=== PATIENT | female | born 1955 | race Caucasian/White ===

== ENCOUNTER 2016-09-02 16:10 | Emergency (ER) | payer MEDICAID ==
[~2016-09-02] VITALS: Ht 162.6 cm; Wt 85.7 kg
[~2016-09-02 16:10] MED LIST: ALPR2TAB2 PO; ENAL20TA70 PO; IBUP-1174 PO; METO-159 PO
[2016-09-02 17:42] LABS: Basophils # (auto) 0 uL; Basophils % (auto) 0.4 % (0.0-2.0); Eosinophils # (auto) 0.1 uL; Eosinophils % (auto) 2.1 % (0.0-7.0); Hematocrit 43.8 % (36.0-46.0); Hemoglobin 14.9 g/dL (12.2-16.2); Lymphocytes # (auto) 1.9 uL; Lymphocytes % (auto) 29.9 % (10.0-50.0); Mean Corpuscular Hemoglobin 31.4 pg (28.0-32.0); Mean Corpuscular Volume 92.4 fL (80.0-100.0); Mean Platelet Volume 9.1 fL (7.4-10.4); Monocytes # (auto) 0.5 uL; Neutrophils # (auto) 3.9 uL; Neutrophils % (auto) 60.6 % (37.0-80.0); Platelet Count (auto) 208 10^3/uL (140-450); Red Cell Distribution Width 13.8 % (11.6-16.0); White Blood Cell 6.5 10^3/uL (4.4-10.8)
[2016-09-02 18:00] LABS: Albumin 3.7 g/dL (3.4-5.0); Alkaline Phosphatase 74 U/L (45-117); Anion Gap 11 (5-15); Aspartate Aminotransferase 20 U/L (15-37); BUN/Creatinine Ratio 16.5; Bilirubin, Total 0.8 mg/dL (0.2-1.0); Blood Urea Nitrogen 13 mg/dL (7-18); Carbon Dioxide 27 mmol/L (21-32); Chloride 107 mmol/L (98-107); GFR African American 95 mL/min; GFR Non-African American 79 mL/min; Glucose 81 mg/dL (74-106); Magnesium 2.7 mg/dL (1.6-2.6); Potassium 3.9 mmol/L (3.5-5.1); Sodium 145 mmol/L (136-145); Total Protein 7.3 g/dL (6.4-8.2)
[2016-09-02] MEDS ORDERED: SODIUM CHLORIDE 0.9% 1,000 ML IV ONE (22:13)
[2016-09-02] MEDS ORDERED: ONDANSETRON HCL 4 MG/2 ML VIAL IV ONE (22:15)
[2016-09-02] MEDS ORDERED: NALBUPHINE HCL 10 MG/1ml INJECTION IV ONE (22:15)
[2016-09-03 00:27] VITALS: BP 126/82
== END 2016-09-03 01:50 | disposition home or self-care (01) ==
LOC: ER 16:20
DX: K59.00 Constipation, unspecified (principal); E78.5 Hyperlipidemia, unspecified; I10 Essential (primary) hypertension; I20.9 Angina pectoris, unspecified; Z88.6 Allergy status to analgesic agent; Z88.1 Allergy status to other antibiotic agents; Z88.8 Allergy status to other drugs, medicaments and biological substances
CPT/HCPCS: 36415; 74000; 74176; 80053; 83735; 84484; 85025; 93005; 96361; 96374; 96375; 99285; J2300; J2405; J7030

== ENCOUNTER 2022-11-17 16:20 | Inpatient (IN) | payer MEDICARE, MEDICAID ==
[~2022-11-17] VITALS: Ht 160 cm; Wt 91.7 kg
[~2022-11-17 16:20] MED LIST changes: +ENAL1TAB48 PO; -ENAL20TA70 PO
[2022-11-17 17:08] LABS: Basophils # (auto) 0 10 ^3/uL (0-0.2); Basophils % (auto) 0.5 % (0.0-2.0); Eosinophils # (auto) 0.1 10 ^3/uL (0-0.8); Eosinophils % (auto) 0.9 % (0.0-7.0); Hematocrit 40.3 % (36.0-46.0); Hemoglobin 13.8 g/dL (12.2-16.2); Lymphocytes # (auto) 0.9 10 ^3/uL (0.4-5.4); Lymphocytes % (auto) 14.7 % (10.0-50.0); Mean Corpuscular Hemoglobin 32.3 pg (28.0-32.0); Mean Corpuscular Hgb Conc. 34.1 g/dL (32.0-36.0); Mean Corpuscular Volume 94.8 fL (80.0-100.0); Monocytes # (auto) 0.4 10 ^3/uL (0-1.3); Monocytes % (auto) 5.6 % (0.0-12.0); Neutrophils % (auto) 78.3 % (37.0-80.0); Red Blood Cells 4.26 10^6/uL (4.0-5.20); White Blood Cell 6.4 10^3/uL (4.4-10.8)
[2022-11-17 17:14] LABS: Urine Bacteria FEW /hpf (None Seen); Urine Blood Negative /uL (Negative); Urine Mucus FEW (None Seen); Urine Specific Gravity 1.022 (1.001-1.035); Urine WBC 1 /hpf (0 - 5)
[2022-11-17 17:24] LABS: Albumin 3.4 g/dL (3.4-5.0); Calcium 9.8 mg/dL (8.5-10.1); Potassium 3.9 mmol/L (3.5-5.1)
[2022-11-17 17:28] LABS: BUN/Creatinine Ratio 15.7 (10.0-20.0); Total Protein 6.7 g/dL (6.4-8.2)
[2022-11-17] MEDS ORDERED: ONDANSETRON HCL 4 MG/2 ML VIAL IV ONE (17:45)
[2022-11-17] MEDS ORDERED: MORPHINE SULFATE 4 MG/ML SYR/VIAL IM ONE (17:45)
[2022-11-17] MEDS ORDERED: SODIUM CHLORIDE 0.9% 1,000 ML IV ONE (17:45)
[2022-11-17] MEDS ORDERED: cefTRIAXone 1GM/50ML D5W 50 ML IV ONE (19:45)
[2022-11-17] MEDS ORDERED: HYDROmorphone HCL 2 MG/ML VL/or syr IV ONE (20:00)
[2022-11-17] MEDS ORDERED: ACETAMINOPHEN 325 MG TAB PO PRN (21:00)
[2022-11-17] MEDS ORDERED: HYDROcodone-ACET 5/325MG TAB PO PRN (21:00)
[2022-11-17] MEDS: metroNIDAZOLE 500MG/100ML 100 ML IV SCH (22:32)
[2022-11-17] MEDS: ATORVASTATIN 20 MG TAB PO SCH (22:32)
[2022-11-18] MEDS: ONDANSETRON HCL 4 MG/2 ML VIAL IV PRN ×3 (03:37→21:54)
[2022-11-18] MEDS ORDERED: MORPHINE SULFATE INJ 2 MG/ml SYRG IV PRN (05:15)
[2022-11-18 06:03] LABS: Basophils # (auto) 0 10 ^3/uL (0-0.2); Basophils % (auto) 0.2 % (0.0-2.0); Eosinophils # (auto) 0 10 ^3/uL (0-0.8); Eosinophils % (auto) 0.6 % (0.0-7.0); Hematocrit 39.4 % (36.0-46.0); Hemoglobin 13.8 g/dL (12.2-16.2); Lymphocytes % (auto) 11.8 % (10.0-50.0); Mean Corpuscular Hemoglobin 33.3 pg (28.0-32.0); Mean Corpuscular Hgb Conc. 35.1 g/dL (32.0-36.0); Mean Corpuscular Volume 94.9 fL (80.0-100.0); Monocytes # (auto) 0.7 10 ^3/uL (0-1.3); Monocytes % (auto) 8.8 % (0.0-12.0); Neutrophils # (auto) 6.5 10 ^3/uL (1.6-8.6); Neutrophils % (auto) 78.6 % (37.0-80.0); Red Blood Cells 4.15 10^6/uL (4.0-5.20); Red Cell Distribution Width 14.2 % (11.8-14.3); White Blood Cell 8.2 10^3/uL (4.4-10.8)
[2022-11-18 06:17] LABS: Albumin 3.4 g/dL (3.4-5.0); Calcium 9.8 mg/dL (8.5-10.1); Potassium 4.5 mmol/L (3.5-5.1)
[2022-11-18 06:19] LABS: BUN/Creatinine Ratio 16.7 (10.0-20.0); Bilirubin, Total 0.9 mg/dL (0.2-1.0); Total Protein 7.4 g/dL (6.4-8.2)
[2022-11-18] MEDS: metroNIDAZOLE 500MG/100ML 100 ML IV SCH ×3 (08:21→21:25)
[2022-11-18] MEDS: cefTRIAXone 1GM/50ML D5W 50 ML IV SCH (08:21)
[2022-11-18] MEDS: SODIUM CHLORIDE 0.9% 1,000 ML IV SCH ×2 (08:22→21:25)
[2022-11-18] MEDS ORDERED: LISINOPRIL 20 MG TAB PO SCH (10:00)
[2022-11-18] MEDS ORDERED: amLODIPine BESYLATE 5 MG TAB PO SCH (10:00)
[2022-11-18 17:27] VITALS: BP 90/70
[2022-11-18] MEDS ORDERED: LISI20TA56 PO (17:59)
[2022-11-18] MEDS ORDERED: ASPI81CH59 PO (17:59)
[2022-11-18] MEDS ORDERED: ATOR40TA52 PO (17:59)
[2022-11-18 18:01] VITALS: BP 90/70
[2022-11-18] MEDS: HYDROmorphone HCL 2 MG/ML VL/or syr IV PRN (20:26)
[2022-11-18] MEDS: ATORVASTATIN 20 MG TAB PO SCH (21:25)
[2022-11-18 22:00] VITALS: BP 133/68
[2022-11-19] MEDS: SODIUM CHLORIDE 0.9% 1,000 ML IV SCH ×2 (04:15→14:22)
[2022-11-19 05:00] VITALS: BP 104/54
[2022-11-19] MEDS: metroNIDAZOLE 500MG/100ML 100 ML IV SCH ×3 (05:17→21:43)
[2022-11-19] MEDS: ONDANSETRON HCL 4 MG/2 ML VIAL IV PRN ×3 (05:18→18:44)
[2022-11-19 06:00] LABS: Basophils # (auto) 0 10 ^3/uL (0-0.2); Basophils % (auto) 0.6 % (0.0-2.0); Eosinophils # (auto) 0.1 10 ^3/uL (0-0.8); Eosinophils % (auto) 2.5 % (0.0-7.0); Hematocrit 34.9 % (36.0-46.0); Hemoglobin 12.1 g/dL (12.2-16.2); Lymphocytes # (auto) 1.2 10 ^3/uL (0.4-5.4); Lymphocytes % (auto) 27.1 % (10.0-50.0); Mean Corpuscular Hemoglobin 32.7 pg (28.0-32.0); Mean Corpuscular Hgb Conc. 34.6 g/dL (32.0-36.0); Mean Corpuscular Volume 94.5 fL (80.0-100.0); Monocytes # (auto) 0.4 10 ^3/uL (0-1.3); Monocytes % (auto) 9.3 % (0.0-12.0); Neutrophils # (auto) 2.7 10 ^3/uL (1.6-8.6); Neutrophils % (auto) 60.5 % (37.0-80.0); Red Blood Cells 3.69 10^6/uL (4.0-5.20); Red Cell Distribution Width 14.1 % (11.8-14.3); White Blood Cell 4.5 10^3/uL (4.4-10.8)
[2022-11-19] MEDS: HYDROmorphone HCL 2 MG/ML VL/or syr IV PRN ×2 (07:06→18:45)
[2022-11-19] MEDS: cefTRIAXone 1GM/50ML D5W 50 ML IV SCH (08:34)
[2022-11-19 08:35] VITALS: BP 121/66
[2022-11-19] MEDS ORDERED: LISINOPRIL 20 MG TAB PO SCH (10:00)
[2022-11-19 12:40] VITALS: BP 96/61
[2022-11-19] MEDS: DOCUSATE SOD 100 MG CAP PO SCH ×2 (14:20→21:43)
[2022-11-19] MEDS: ALPRAZolam 0.5 MG TAB PO PRN (14:20)
[2022-11-19 17:03] VITALS: BP 107/62
[2022-11-19] MEDS: ATORVASTATIN 20 MG TAB PO SCH (21:43)
[2022-11-19 22:00] VITALS: BP 95/57
[2022-11-20] MEDS: SODIUM CHLORIDE 0.9% 1,000 ML IV SCH ×3 (00:15→20:15)
[2022-11-20] MEDS: ONDANSETRON HCL 4 MG/2 ML VIAL IV PRN ×3 (02:15→15:16)
[2022-11-20] MEDS: ALPRAZolam 0.5 MG TAB PO PRN ×2 (02:20→21:10)
[2022-11-20 05:00] VITALS: BP 99/59
[2022-11-20] MEDS: metroNIDAZOLE 500MG/100ML 100 ML IV SCH ×3 (05:39→20:57)
[2022-11-20 09:00] VITALS: BP 107/75
[2022-11-20] MEDS: HYDROmorphone HCL 2 MG/ML VL/or syr IV PRN ×2 (09:34→15:16)
[2022-11-20] MEDS: DOCUSATE SOD 100 MG CAP PO SCH ×2 (09:35→20:57)
[2022-11-20] MEDS: ASPirin 81 mg TAB PO SCH (09:35)
[2022-11-20] MEDS: cefTRIAXone 1GM/50ML D5W 50 ML IV SCH (09:35)
[2022-11-20 13:00] VITALS: BP 120/85
[2022-11-20 17:00] VITALS: BP 115/55
[2022-11-20] MEDS: ATORVASTATIN 20 MG TAB PO SCH (20:57)
[2022-11-20 22:00] VITALS: BP 111/46
[2022-11-21 05:00] VITALS: BP 117/49
[2022-11-21] MEDS: metroNIDAZOLE 500MG/100ML 100 ML IV SCH ×2 (05:07→14:00)
[2022-11-21 06:08] LABS: Potassium 3.9 mmol/L (3.5-5.1)
[2022-11-21 06:13] LABS: Albumin 2.7 g/dL (3.4-5.0); BUN/Creatinine Ratio 13.1 (10.0-20.0); Magnesium 1.8 mg/dL (1.6-2.6)
[2022-11-21] MEDS: SODIUM CHLORIDE 0.9% 1,000 ML IV SCH (06:15)
[2022-11-21 06:16] LABS: Bilirubin, Total 0.5 mg/dL (0.2-1.0); Total Protein 6.1 g/dL (6.4-8.2)
[2022-11-21 06:22] LABS: Basophils # (auto) 0 10 ^3/uL (0-0.2); Basophils % (auto) 0.7 % (0.0-2.0); Eosinophils # (auto) 0.1 10 ^3/uL (0-0.8); Hematocrit 35.1 % (36.0-46.0); Hemoglobin 12.1 g/dL (12.2-16.2); Lymphocytes # (auto) 1.2 10 ^3/uL (0.4-5.4); Lymphocytes % (auto) 25.8 % (10.0-50.0); Mean Corpuscular Hgb Conc. 34.4 g/dL (32.0-36.0); Monocytes # (auto) 0.4 10 ^3/uL (0-1.3); Monocytes % (auto) 8.7 % (0.0-12.0); Neutrophils % (auto) 62.8 % (37.0-80.0); Nucleated Red Blood Cells % 0.1 %; Red Blood Cells 3.65 10^6/uL (4.0-5.20); Red Cell Distribution Width 13.5 % (11.8-14.3); White Blood Cell 4.7 10^3/uL (4.4-10.8)
[2022-11-21] MEDS: ASPirin 81 mg TAB PO SCH (08:40)
[2022-11-21] MEDS: DOCUSATE SOD 100 MG CAP PO SCH (08:40)
[2022-11-21] MEDS: cefTRIAXone 1GM/50ML D5W 50 ML IV SCH (08:41)
[2022-11-21] MEDS ORDERED: ADENOSINE 77 MG in GIVE UN-DILUTED 0 ML IV ONE (08:45)
[2022-11-21] MEDS ORDERED: LACTULOSE 20Gm/30ML SOLN PO ONE (10:00)
[2022-11-21] MEDS ORDERED: METR-344 PO (10:07)
[2022-11-21] MEDS ORDERED: DOCU-94 PO (10:07)
[2022-11-21] MEDS ORDERED: LEVO500T91 PO (10:07)
[2022-11-21 11:02] VITALS: BP 141/79
[2022-11-21 11:10] VITALS: BP 141/70
[2022-11-21 14:17] VITALS: BP 147/79
[2022-11-21 14:29] LABS: Cholesterol 102 mg/dL (< 200); HDL Cholesterol 70 mg/dL (40-59); LDL Cholesterol 30 mg/dL (< 100); Triglycerides 37 mg/dL (< 150)
[2022-11-21 14:54] VITALS: BP 114/84
== END 2022-11-21 15:23 | disposition home or self-care (01) | DRG 392 ==
LOC: ER 16:20 → OVERFLOW 20:57 → EAST 11-18 17:27
PROVIDERS: ADMIT Nurse Practitioner; ATTEND Internal Medicine
DX: K57.32 Diverticulitis of large intestine without perforation or abscess without bleeding (principal); N39.0 Urinary tract infection, site not specified; I10 Essential (primary) hypertension; E66.9 Obesity, unspecified; K59.00 Constipation, unspecified; F41.9 Anxiety disorder, unspecified; E78.00 Pure hypercholesterolemia, unspecified; I20.9 Angina pectoris, unspecified; Z68.23 Body mass index [BMI] 23.0-23.9, adult; Z86.73 Personal history of transient ischemic attack (TIA), and cerebral infarction without residual deficits; Z82.49 Family history of ischemic heart disease and other diseases of the circulatory system; Z88.5 Allergy status to narcotic agent; Z88.1 Allergy status to other antibiotic agents; Z88.8 Allergy status to other drugs, medicaments and biological substances; Z79.899 Other long term (current) drug therapy
CPT/HCPCS: 36415; 71045; 74176; 80053; 80061; 81001; 83036; 83690; 83735; 84443; 84484; 85025; 85379; 87086; 93005; 93306; 96361; 96365; 96366; 96375; G0378; J0153; J0696; J2405; J3490